=== PATIENT | male | born 1990 | race Caucasian/White ===

== ENCOUNTER 2024-03-11 22:22 | Emergency (ER) | payer OTHER, MEDICAID ==
[~2024-03-11] VITALS: Ht 182.9 cm; Wt 83.9 kg
[2024-03-11 22:35] VITALS: BP_SYST 123; PULSE 107; RESP 19; TEMP 97.9; O2SAT 98
[2024-03-11] MEDS: MORPHINE 4 MG INJ. 4 MG/ML VIAL IM ONE (23:00)
[2024-03-11] MEDS ORDERED: NAPR-1172 PO (23:30)
[2024-03-11] MEDS ORDERED: HYDR-3917 PO (23:31)
[2024-03-11 23:35] VITALS: BP_SYST 123; PULSE 107; RESP 19; TEMP 97.9; O2SAT 98
== END 2024-03-11 23:35 | disposition home or self-care (01) ==
LOC: SED 22:22
DX: S22.089A Unspecified fracture of T11-T12 vertebra, initial encounter for closed fracture (principal); M54.50 Low back pain, unspecified; Z98.890 Other specified postprocedural states; V89.2XXA Person injured in unspecified motor-vehicle accident, traffic, initial encounter; Z79.899 Other long term (current) drug therapy; Y93.89 Activity, other specified; Y92.89 Other specified places as the place of occurrence of the external cause; Y99.8 Other external cause status
CPT/HCPCS: 99283; 96372; J2270